=== PATIENT | male | born 1950 | race Caucasian/White ===

== ENCOUNTER 2021-01-22 20:25 | Inpatient (IN) | payer MEDICARE ==
[~2021-01-22] VITALS: Ht 182.9 cm; Wt 100.7 kg
[2021-01-22 20:28] VITALS: BP 137/86
[2021-01-22] MEDS ORDERED: MEDROLDOSEPACK PO (20:42)
[2021-01-22] MEDS ORDERED: VENTOLIN HFA 1818 GM INH (20:43)
[2021-01-22] MEDS ORDERED: ZPAK PO (20:43)
[2021-01-22] MEDS ORDERED: TESSALON PERLE100 MG PO (20:43)
[2021-01-22 20:53] LABS: ABSOLUTE LYMPHOCYTES 0.8 thou/uL (0.8-5.3); ABSOLUTE MONOCYTES 0.6 thou/uL (0.0-1.2); ABSOLUTE NEUTROPHILS 8.2 thou/uL (1.6-8.1); BASOPHILS 0.3 %; HEMATOCRIT 46.7 % (42.0-52.0); HEMOGLOBIN 15.6 gm/dL (14.0-18.0); LYMPHOCYTES 8.5 %; MCH 30.6 pg (26.0-34.0); MCHC 33.3 g/dL (28.0-37.0); MCV 91.8 fL (80.0-100.0); MONOCYTES 6.2 %; MPV 7.9 fl. (7.2-11.1); NUCLEATED RBCS 0 /100WBC; PLATELET COUNT* 253 thou/uL (150-400); RBC 5.09 mil/uL (4.50-6.00); WBC 9.6 thou/uL (4.0-11.0)
[2021-01-22 21:01] LABS: CALCIUM 8.4 mg/dL (8.5-10.1); CREATININE 1.2 mg/dL (0.6-1.3); POTASSIUM 3.3 mmol/L (3.5-5.1)
[2021-01-22 21:11] LABS: TOTAL BILIRUBIN 0.7 mg/dL (<0.1-1.0); TOTAL PROTEIN 7.1 g/dL (6.4-8.2)
[2021-01-23 02:00] VITALS: BP 91/61
[2021-01-23 06:05] VITALS: BP 147/105
[2021-01-23 10:26] VITALS: BP 142/92
[2021-01-23 14:15] VITALS: BP 147/90
[2021-01-23 14:25] VITALS: BP 137/95
--- NOTE | 2021-01-23 15:50 | EKG ---
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
--- NOTE | 2021-01-23 18:27 | NUR ---
RECEIVED REPORT FROM TANVIR LYNCH. PT ARRIVED ON UNIT AROUND 1415. ASSUMED CARE. VS AND ADMIT DONE. RECONCILED MEDS. PT HAS NO HOME MEDS. NO PAIN ON ARRIVAL. HOURLY ROUNDING PERFORMED. ORIENTED TO NEW ROOM. CALL LIGHT WITH IN REACH. WILL CONTINUE TO MONITOR.
[2021-01-23 18:46] LABS: CHOLESTEROL 123 mg/dL (<200); HDL CHOLESTEROL 41 mg/dL (>40); LDL CHOLESTEROL 65 mg/dL (<100); TRIGLYCERIDE 85 mg/dL (<150); VLDL 17 mg/dL (<40)
[2021-01-23 18:47] LABS: SERUM ASSESSMENT Clear
[2021-01-23 22:24] LABS: CALCIUM 8.1 mg/dL (8.5-10.1); CREATININE 1.1 mg/dL (0.6-1.3); POTASSIUM 3.4 mmol/L (3.5-5.1)
[2021-01-23 22:27] LABS: MAGNESIUM 2.5 mg/dL (1.8-2.4); PHOSPHORUS* 2.8 mg/dL (2.5-4.9)
[2021-01-24 00:40] VITALS: BP 136/87
[2021-01-24 04:27] VITALS: BP 135/84
[2021-01-24 08:00] VITALS: BP 137/89
--- NOTE | 2021-01-24 11:15 | EKG ---
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[place] : 1950 Requested By: Brent Cortez Order Number: [id number] Leonard MD: Hector Gustafson Measurements Intervals [place] Rate: 99 P: [place]: QRS: 16 QRSD: 84 T: -9 QT: 342 QTc: 439 Interpretive Statements Atrial fibrillation Borderline T abnormalities, inferior leads Compared to ECG 01/22/2021 20:43:30 T-wave abnormality now present Electronically Signed On 01-24-2021 11:15:35 CDT by Hector Gustafson [email or web address] <ELECTRONICALLY SIGNED> By: Hector Gustafson MD, [facility] 01/24/21 1115 171 171 Hector Gustafson MD, [facility] /EPI
[2021-01-24 12:30] VITALS: BP 140/91
--- NOTE | 2021-01-24 15:27 | NUR ---
Pt is A&O. Covid positive. Resides at home alone. Independent. No DME. No hx of HH or SNF. Goal is home at dc. Pt on 6L o2, continue to wean. Ex ox needed at dc.
--- NOTE | 2021-01-24 17:34 | EKG ---
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
--- NOTE | 2021-01-24 17:36 | 2DMMODE ---
[place] [address] 2 D/M-MODE ECHOCARDIOGRAM Name: REYNALDO MONCADA Room: [address] IN [facility]#: [id number] Admission: 01/22/21 Attend Phys: Angel Barney, Discharge: Date of : 50 Date of Service: 01/24/21 1736 Report #: [id number] THIS REPORT FOR: cc: FAM - No family physician/PCP FAM - No family physician/PCP Alonso Moore MD [facility] ~ APPROVED REPORT Study performed: 01/24/2021 14:41:50 EXAM: Comprehensive 2D, Doppler, and color-flow Echocardiogram Patient Location: In-Patient Room #: 115 Status: routine BSA: 2.23 HR: 103 bpm BP: 137/89 mmHg Rhythm: Atrial Fibrillation Other Information Study Quality: Good Indications Atrial Fibrillation 2D Dimensions IVSd: 11.53 (7-11mm) LVOT Diam: 21.87 (18-24mm) LVDd: 35.13 mm PWd: 11.08 (7-11mm) Ascending Ao: 35.49 (22-36mm) LVDs: 22.57 (25-40mm) Aortic Root: 41.88 mm Volumes Left Atrial Volume (Systole) LA ESV Index: 23.70 mL/m2 Aortic Valve AoV Peak Royal.: 0.97 m/s AO Peak Gr.: 3.78 mmHg LVOT Max P.39 mmHg AO Mean Gr.: 2.29 mmHg LVOT Mean P.06 mmHg LVOT Max V: 0.92 m/s AO V2 VTI: 15.83 cm LVOT Mean V: 0.69 m/s KENJI (VTI): 4.02 cm2 LVOT V1 VTI: 16.96 [place] [address] 2 D/M-MODE ECHOCARDIOGRAM Name: REYNALDO MONCADA Room: [address] IN [facility]#: [id number] Admission: 01/22/21 Attend Phys: Angel Barney, Discharge: Date of : 50 Date of Service: 01/24/21 1736 Report #: [id number] TDI Medial E' Royal.: 0.13 m/s Lateral E' Royal.: 0.14 m/s Pulmonary Valve PV Peak Royal.: 0.93 m/s PV Peak Gr.: 3.47 mmHg Tricuspid Valve RAP Estimate: 5.00 mmHg TR Peak Gr.: 23.95 mmHg RVSP: 29.00 mmHg PA Pressure: 29.00 mmHg Left Ventricle The left ventricle is normal size. There is normal LV segmental wall motion. Mild concentric left ventricular hypertrophy. The left ventricular systolic function is normal. The left ventricular ejection fraction is within the normal range. LVEF is 60-65%. This study is not technically sufficient to allow evaluation of the LV diastolic function due to atrial fibrillation. Right Ventricle The right ventricle is normal size. The right ventricular systolic function is normal. Atria Left atrium is mildly dilated. The right atrium size is normal. Aortic Valve Grossly normal. Trace aortic regurgitation. There is no aortic valvular stenosis. Mitral Valve The mitral valve is normal in structure. Trace mitral regurgitation. No evidence of mitral valve stenosis. Tricuspid Valve Grossly normal. Mild tricuspid regurgitation. The RVSP is 30-35 mmHg. Pulmonic Valve Mild pulmonic regurgitation. Great Vessels Aortic root is moderately dilated. IVC [place] [address] 2 D/M-MODE ECHOCARDIOGRAM Name: REYNALDO MONCADA Room: [address]#: [id number] Admission: 01/22/21 Attend Phys: Angel Barney, Discharge: Date of : 50 Date of Service: 01/24/21 1736 Report #: [id number] <Conclusion> The left ventricle is normal size. Mild concentric left ventricular hypertrophy. The left ventricular systolic function is normal. The left ventricular ejection fraction is within the normal range. LVEF is 60-65%. This study is not technically sufficient to allow evaluation of the LV diastolic function due to atrial fibrillation. There is normal LV segmental wall motion. Left atrium is mildly dilated. Mild tricuspid regurgitation. The RVSP is 30-35 mmHg. Aortic root is moderately dilated. <ELECTRONICALLY SIGNED> By: Alonso Moore MD, FACC 01/24/21 1736 1736 1736 Alonso Moore MD, FACC /INF
[2021-01-24 17:47] VITALS: BP 146/98
[2021-01-24 18:11] LABS: HEMATOCRIT 40.3 % (42.0-52.0); MCH 30.3 pg (26.0-34.0); MCHC 33.3 g/dL (28.0-37.0); MCV 91.1 fL (80.0-100.0); MPV 7.5 fl. (7.2-11.1); NUCLEATED RBCS 0 /100WBC; PLATELET COUNT* 255 thou/uL (150-400); RBC 4.43 mil/uL (4.50-6.00); RDW-CV 13.7 % (10.5-14.5); WBC 9.9 thou/uL (4.0-11.0)
[2021-01-24 18:12] LABS: HEMOGLOBIN 13.4 gm/dL (14.0-18.0)
[2021-01-24 18:27] LABS: ALBUMIN 2.4 g/dL (3.4-5.0); MAGNESIUM 2.4 mg/dL (1.8-2.4); POTASSIUM 4.2 mmol/L (3.5-5.1); TOTAL BILIRUBIN 0.7 mg/dL (<0.1-1.0); TOTAL PROTEIN 5.8 g/dL (6.4-8.2)
[2021-01-24 19:10] LABS: ABSOLUTE LYMPHOCYTES 0.7 thou/uL (0.8-5.3); ABSOLUTE MONOCYTES 0.5 thou/uL (0.0-1.2); ABSOLUTE NEUTROPHILS 8.7 thou/uL (1.6-8.1)
[2021-01-24 19:12] LABS: PLATELET ESTIMATE ADEQUATE
[2021-01-25] VITALS: BP 147/89
[2021-01-25 04:00] VITALS: BP 140/57
[2021-01-25 04:52] LABS: HEMATOCRIT 39.4 % (42.0-52.0); HEMOGLOBIN 13.3 gm/dL (14.0-18.0); MCH 30.8 pg (26.0-34.0); MCHC 33.8 g/dL (28.0-37.0); MCV 91.2 fL (80.0-100.0); MPV 7.8 fl. (7.2-11.1); RBC 4.33 mil/uL (4.50-6.00); RDW-CV 13.4 % (10.5-14.5)
[2021-01-25 05:20] LABS: ALBUMIN 2.4 g/dL (3.4-5.0); MAGNESIUM 2.4 mg/dL (1.8-2.4); POTASSIUM 3.8 mmol/L (3.5-5.1); TOTAL BILIRUBIN 0.9 mg/dL (<0.1-1.0); TOTAL PROTEIN 5.8 g/dL (6.4-8.2)
--- NOTE | 2021-01-25 07:25 | NUR ---
CHANGE OF SHIFT REPORT GIVEN PATIENT SEEN AT BEDSIDE, IN BED RESTING ASSUMED PATIENT CARE
[2021-01-25 08:00] VITALS: BP 134/83
[2021-01-25 12:00] VITALS: BP 147/78
--- NOTE | 2021-01-25 14:54 | NUR ---
Anticipate dc in a few days. Pt remains on 12L
--- NOTE | 2021-01-25 15:54 | CON ---
[address] [address] CONSULTATION Name: REYNALDO MONCADA Room: [address] IN .R.#: [id number] Admission: 01/22/21 Attend Phys: Angel Barney MD Discharge: Date of : 50 Report #: [id number] THIS REPORT FOR: cc: FAM - No family physician/PCP FAM - No family physician/PCP Uri Joseph MD ~ DATE OF CONSULTATION: 01/24/2021 REQUESTING PHYSICIAN: Fay Vazquez MD INDICATION FOR CONSULTATION: COVID-19. HISTORY OF PRESENT ILLNESS: A 70-year-old gentleman with past medical history is as mentioned, though does not include a history of a cardiac or respiratory disease. The patient also is a lifetime nonsmoker. The patient has now been having flu-like symptoms since 01/09, was initially treated with a Medrol Dosepak, albuterol inhaler, Tessalon Perles and azithromycin by his PCP. The patient, however, continued to have shortness of breath, also had a cough, but not much sputum, no chest pain, no swelling of lower extremities. These symptoms were worsening and therefore he eventually came to the emergency room here. The patient also is noted to have been tachycardic and he did develop atrial fibrillation. This is new onset atrial fibrillation as he has not had a previous history of atrial fibrillation. Since then, he has continued to require oxygen to maintain O2 saturation, initially was 84% on room air, currently on 6 liters nasal cannula. He is maintaining an O2 saturation of 94%. The patient reports persistent shortness of breath with not much improvement since he was admitted. REVIEW OF SYSTEMS: For 12 points is negative except as mentioned above with the exception that he had some headache, malaise and weakness. PAST MEDICAL HISTORY: Cataract surgery, bunionectomy. There is recent echo showing normal left ventricular ejection fraction, pulmonary artery systolic 35. SOCIAL HISTORY: Lifetime nonsmoker. No known history of heavy alcohol use or illegal drug use. CURRENT MEDICATIONS: The list is in [place], reviewed. HOME MEDICATIONS: See discussion as above for recent medications as described. He has not been on any other medications at home. FAMILY HISTORY: There is a history of heart [place] [address] CONSULTATION Name: REYNALDO MONCADA Room: [address]#: [id number] Admission: 01/22/21 Attend Phys: Angel Barney MD Discharge: Date of : 50 Report #: [id number] PHYSICAL EXAMINATION: GENERAL: He is alert, awake and oriented, does not appear to be in any distress. VITAL SIGNS: Has a pulse of 91 and a blood pressure of 146/98. He is saturating 94%. He is on 6 liters nasal cannula. His temperature is 37.2. HEENT: Head is normocephalic and atraumatic. NECK: Does not show raised JVP. CHEST: Essentially clear to auscultation. HEART: Regular, no murmur. ABDOMEN: Soft and nontender. EXTREMITIES: Lower extremities, no edema, no calf tenderness. LABORATORY DATA: The patient's CTA chest performed 2 days ago is reviewed and primarily shows extensive infiltrates secondary to COVID-19. There are no pulmonary emboli. Venous Dopplers were negative. Lab work is in [place] and this is also reviewed. ASSESSMENT AND PLAN: 1. Acute hypoxemic respiratory failure secondary to COVID-19. The patient was instructed to avoid supine sleep, referred prone. If not prone, then on sides out of the bed to chair. He is currently on albuterol inhaler. He is not in a negative pressure room and therefore, I did not change him to nebulizers. 2. COVID-19. Primarily, I recommend continuing with dexamethasone at 6 mg a day at this time as well as remdesivir. He has already ordered these. His LFTs are elevated. Therefore, for now we will continue remdesivir. Recommend closely following LFTs. 3. Pulmonary infiltrates, primarily secondary to COVID-19, but will cover for possibility of secondary bacterial infections with doxycycline. 4. New onset atrial fibrillation. Cardiology on the case. Left ventricular ejection fraction noted to be normal. Noted to be now on sotalol as well as Eliquis. 5. Hyperglycemia. No known history of diabetes. Hemoglobin A1c can be obtained to distinguish between diabetes and hyperglycemia solely related to stress and steroid. Defer to primary service. 6. Elevated blood pressures. He is now on sotalol per cardiology. It is possible he has previously undiagnosed hypertension. 7. Clostridium difficile prophylaxis, Lactinex. Thanks for this consultation. <ELECTRONICALLY SIGNED> By: Uri Joseph MD 01/25/21 1554 2118 [id number] Joseph MD /nt
[2021-01-25 15:56] VITALS: BP 129/74
--- NOTE | 2021-01-25 16:18 | EKG ---
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 : 1950 Requested By: Laura Parrish Order Number: [id number] Leonard MD: Hector Gustafson Measurements Intervals [place] Rate: 76 P: [place]: QRS: 14 QRSD: 90 T: -2 QT: 384 QTc: 432 Interpretive Statements Atrial fibrillation Borderline T abnormalities, inferior leads Baseline wander in lead(s) II Compared to ECG 01/24/2021 16:09:1 No significant interval change Electronically Signed On 01-25-2021 16:18:29 CDT by Hector Gustafson [email or web address] <ELECTRONICALLY SIGNED> By: Hector Gustafson MD, FAC 01/25/21 1618 0646 0646 Hector Gustafson MD, FAC /EPI
--- NOTE | 2021-01-25 16:18 | NUR ---
Infection Prevention: Per [facility] patient had a positive Covid PCR test on 01/19/21.
[2021-01-25 20:00] VITALS: BP 115/66
[2021-01-26 00:17] VITALS: BP 138/61
[2021-01-26 04:38] VITALS: BP 139/67
--- NOTE | 2021-01-26 05:07 | NUR ---
ASSUMED PT CARE AT APPROX 1930. PT IS AWAKE AND ORIENTED X4. PT IS TRACING AFIB/AFLUTTER/SB ON THE FORGER HELPER. spO2 IS 85-88 ON 8L OF O2/NC, TURNED O2 UP TO 10L TO KEEP spO2 AT OR >90%. PT DENIES PAIN AT THIS TIME. NO ACUTE CHANGES. CALL LIGHT WITHIN REACH. HOURLY ROUNDING DONE FOR PT SAFETY.
[2021-01-26 05:21] LABS: ABSOLUTE LYMPHOCYTES 0.3 thou/uL (0.8-5.3); ABSOLUTE MONOCYTES 0.3 thou/uL (0.0-1.2); ABSOLUTE NEUTROPHILS 6.8 thou/uL (1.6-8.1); BASOPHILS 0.1 %; HEMATOCRIT 39.8 % (42.0-52.0); HEMOGLOBIN 13.3 gm/dL (14.0-18.0); LYMPHOCYTES 4.6 %; MCH 30.3 pg (26.0-34.0); MCHC 33.5 g/dL (28.0-37.0); MCV 90.5 fL (80.0-100.0); MONOCYTES 3.7 %; MPV 7.9 fl. (7.2-11.1); NUCLEATED RBCS 0 /100WBC; PLATELET COUNT* 256 thou/uL (150-400); POLYS 91.6 %; RDW-CV 13.5 % (10.5-14.5); WBC 7.4 thou/uL (4.0-11.0)
[2021-01-26 05:48] LABS: ALBUMIN 2.4 g/dL (3.4-5.0); CREATININE 1.1 mg/dL (0.6-1.3); MAGNESIUM 2.3 mg/dL (1.8-2.4); TOTAL BILIRUBIN 0.7 mg/dL (<0.1-1.0)
[2021-01-26 06:00] LABS: POTASSIUM 4.2 mmol/L (3.5-5.1)
[2021-01-26 08:00] VITALS: BP 128/68
[2021-01-26 12:30] VITALS: BP 133/51
--- NOTE | 2021-01-26 14:36 | EKG ---
[place] [address] ELECTROCARDIOGRAM REPORT Name: REYNALDO MONCADA Room: [address] IN ..#: [id number] Admission: 01/22/21 Attend Phys: Angel Barney, Discharge: Date of : 50 Date of Service: 01/26/21 1022 Report #: [id number] THIS REPORT FOR: //name// [facility] Test Date: 2021-01-26 Test Time: 10:22:05 Pat Name: REYNALDO MONCADA Department: Room: [address] Gender: M Cv Rn: 1885 : 1950 Requested By: Laura Parrish Order Number: [id number] Reading MD: eHctor Gustafson Measurements Intervals [place] Rate: 60 P: 23 MT: 182 QRS: 48 QRSD: 79 T: 47 QT: 448 QTc: 448 Interpretive Statements Sinus rhythm Probable left atrial enlargement RSR' in V1 or V2, probably normal variant Compared to ECG 01/25/2021 06:46:00 RSR' in V1 or V2 now present Atrial fibrillation no longer present T-wave abnormality no longer present Electronically Signed On 01-26-2021 14:36:22 CDT by Hector Gustafson [email or web address] <ELECTRONICALLY SIGNED> By: Hector Gustafson MD, [facility] 01/26/21 1436 1022 1022 Hector Gustafson MD, [facility] /EPI
--- NOTE | 2021-01-26 15:06 | NUR ---
No weekend dc planned. Pt on 10L, continue to wean. Pt will need an ex ox at dc.
[2021-01-26 16:39] VITALS: BP 131/61
--- NOTE | 2021-01-26 19:24 | NUR ---
RECEIVED REPORT AROUND 0715. ASSUMED CARE. VS AND ASSESSMENT CHARTED. IV INTACT LEFT HAND, LEFT AC. HEART MONITOR ATTACHED AT SB. PT UP IN CHAIR MOST OF DAY. NO PAIN THIS SHIFT. MEDS GIVEN PER JUL. HOURLY ROUNDING PERFORMED. ISOLATION INTACT. CALL LIGHT WITH IN REACH.
[2021-01-26 20:00] VITALS: BP 128/64
[2021-01-27 00:23] VITALS: BP 143/52
[2021-01-27 04:31] VITALS: BP 145/64
--- NOTE | 2021-01-27 04:52 | NUR ---
NO ACUTE CHANGES THIS SHIFT. PT IS TRACING SB ON THE ASSISTANT PRODUCTION MANAGER. PT DENIES CHEST PAIN/DISCOMFORT. PT GETS SHORT OF AIR WITH ACTIVITY, DESATURATES ON THE MID TO UPPER 80's. NO DESATURATIONS NOTED AT REST ON 10L OF O2/HFNC. PT IS CLOSELY MONITORED. CALL LIGHT WITHIN REACH. HOURLY ROUNDING DONE FOR PT SAFETY.
[2021-01-27 05:31] LABS: HEMATOCRIT 39.1 % (42.0-52.0); HEMOGLOBIN 13.4 gm/dL (14.0-18.0); MCH 30.9 pg (26.0-34.0); MCHC 34.3 g/dL (28.0-37.0); MCV 89.9 fL (80.0-100.0); MPV 7.8 fl. (7.2-11.1); NUCLEATED RBCS 0 /100WBC; PLATELET COUNT* 281 thou/uL (150-400); RBC 4.35 mil/uL (4.50-6.00); RDW-CV 13.6 % (10.5-14.5); WBC 10.2 thou/uL (4.0-11.0)
[2021-01-27 05:57] LABS: ALBUMIN 2.4 g/dL (3.4-5.0); CALCIUM 8.3 mg/dL (8.5-10.1); MAGNESIUM 2.5 mg/dL (1.8-2.4); POTASSIUM 4.4 mmol/L (3.5-5.1); TOTAL BILIRUBIN 0.6 mg/dL (<0.1-1.0); TOTAL PROTEIN 6.1 g/dL (6.4-8.2)
[2021-01-27 06:37] LABS: ABSOLUTE LYMPHOCYTES 0.2 thou/uL (0.8-5.3); ABSOLUTE MONOCYTES 0.1 thou/uL (0.0-1.2); ABSOLUTE NEUTROPHILS 9.9 thou/uL (1.6-8.1); PLATELET ESTIMATE ADEQUATE
[2021-01-27 08:00] VITALS: BP 130/67
[2021-01-27 12:00] VITALS: BP 132/68
[2021-01-27 16:00] VITALS: BP 136/71
--- NOTE | 2021-01-27 19:24 | NUR ---
RECEIVED REPORT AROUND 0715. ASSUMED CARE. VS AND ASSESSMENT CHARTED. IV INTACT. HEART MONITOR ATTACHED AT SR. MEDS GIVEN PER JUL. HOURLY ROUNDING PERFORMED. CALL LIGHT WITH IN REACH.
[2021-01-27 20:00] VITALS: BP 136/65
[2021-01-28 00:32] VITALS: BP 137/59
[2021-01-28 04:17] VITALS: BP 145/74
--- NOTE | 2021-01-28 04:54 | NUR ---
ASSUMED PT CARE AT APPROX 1930. PT IS AWAKE AND ORIENTED X4, PT IS TRACING SB ON THE INSURANCE ACCOUNT EXECUTIVE. PT IS KEPT ON 10L OF O2/HFNC TO MAINTAIN sPO2 >91%. PT DENIES PAIN/DISCOMFORT. NO ACUTE CHANGES THIS SHIFT. CALL LIGHT WITHIN REACH. HOURLY ROUNDING DONE FOR PT SAFETY. PT IS CLOSELY MONITORED.
[2021-01-28 06:17] LABS: CALCIUM 8.2 mg/dL (8.5-10.1); CREATININE 0.9 mg/dL (0.6-1.3); MAGNESIUM 2.3 mg/dL (1.8-2.4); POTASSIUM 4.3 mmol/L (3.5-5.1)
[2021-01-28 08:00] VITALS: BP 119/62
[2021-01-28 12:30] VITALS: BP 113/54
[2021-01-28 18:50] VITALS: BP 129/66
--- NOTE | 2021-01-28 19:01 | NUR ---
RECEIVED REPORT AROUND 0715. ASSUMED CARE. VS AND ASSESSMENT CHARTED. IV ITNACT RIGHT HAND. HEART MONITOR ATTACHED AT SB. MEDS GIVEN PER JUL. HOURLY ROUNDING PERFORMED. ISOLATION INTACT. 10L HI FLOW. PT SAT UP IN CHAIR FOR A WHILE THIS SHIFT. CALL LIGHT WITH IN REACH. WILL CONTINUE TO MONITOR.
[2021-01-28 20:00] VITALS: BP 131/62
[2021-01-29] VITALS: BP 121/64
[2021-01-29 04:00] VITALS: BP 141/69
--- NOTE | 2021-01-29 05:32 | NUR ---
ASSUMED PT CARE AT APPROX 1930. PT IS AWAKE AND ORIENTED X4, PT IS TRACING SB ON THE [place]. PT IS KEPT ON 9L OF O2/HFNC TO MAINTAIN sPO2 >91%. PT DENIES PAIN/DISCOMFORT. NO ACUTE CHANGES THIS SHIFT. CALL LIGHT WITHIN REACH. HOURLY ROUNDING DONE FOR PT SAFETY. PT IS CLOSELY MONITORED.
[2021-01-29 05:34] LABS: HEMATOCRIT 38.9 % (42.0-52.0); HEMOGLOBIN 12.9 gm/dL (14.0-18.0); MCH 30.2 pg (26.0-34.0); MCHC 33.2 g/dL (28.0-37.0); MPV 7.6 fl. (7.2-11.1); RBC 4.27 mil/uL (4.50-6.00); RDW-CV 13.6 % (10.5-14.5); WBC 10.8 thou/uL (4.0-11.0)
[2021-01-29 05:57] LABS: ALBUMIN 2.2 g/dL (3.4-5.0); CALCIUM 7.8 mg/dL (8.5-10.1); MAGNESIUM 2.4 mg/dL (1.8-2.4); POTASSIUM 4.9 mmol/L (3.5-5.1); TOTAL BILIRUBIN 0.7 mg/dL (<0.1-1.0); TOTAL PROTEIN 5.5 g/dL (6.4-8.2)
[2021-01-29 08:00] VITALS: BP 125/61
[2021-01-29 12:10] VITALS: BP 135/71
--- NOTE | 2021-01-29 14:23 | NUR ---
Nutrition: Pt admitted to COVID unit. Assessed for LOS. Spoke with RN. Pt is eating well. Wt: 222#. Meds, labs reviewed. H/o HTN, HLD, DM. No nutrition needs at this time. Low risk.
--- NOTE | 2021-01-29 16:00 | NUR ---
Pt on 7L, continue to wean. Anticipate dc tomorrow. Ex ox to be completed at dc
[2021-01-29 18:46] VITALS: BP 121/61
--- NOTE | 2021-01-29 19:23 | NUR ---
RECEIVED REPORT AROUND 0715. ASSUMED CARE. VS AND ASSESSMENT CHARTED. IV INTACT. HEART MONITOR ATTACHED AT SB/SR. PT UP ADLIB. MEDS GIVEN PER MAR. HOURLY ROUNDING PERFORMED. ISOLATION INTACT. CALL LIGHT WITH IN REACH.
[2021-01-29 20:30] VITALS: BP 122/77
[2021-01-30 00:09] VITALS: BP 113/53
[2021-01-30 04:00] VITALS: BP 132/70
[2021-01-30 04:51] LABS: HEMATOCRIT 38.7 % (42.0-52.0); HEMOGLOBIN 13.2 gm/dL (14.0-18.0); MCHC 34.1 g/dL (28.0-37.0); MCV 90.8 fL (80.0-100.0); MPV 7.7 fl. (7.2-11.1); RBC 4.26 mil/uL (4.50-6.00); RDW-CV 13.4 % (10.5-14.5); WBC 12.7 thou/uL (4.0-11.0)
[2021-01-30 05:46] LABS: ALBUMIN 2.2 g/dL (3.4-5.0); CALCIUM 7.9 mg/dL (8.5-10.1); CREATININE 0.9 mg/dL (0.6-1.3); MAGNESIUM 2.3 mg/dL (1.8-2.4); POTASSIUM 4.7 mmol/L (3.5-5.1); TOTAL BILIRUBIN 0.6 mg/dL (<0.1-1.0); TOTAL PROTEIN 5.5 g/dL (6.4-8.2)
[2021-01-30 08:00] VITALS: BP 125/97
[2021-01-30 12:00] VITALS: BP 111/60
[2021-01-30] MEDS ORDERED: ELIQUIS5 MG PO (12:16)
[2021-01-30] MEDS ORDERED: DEXAMETHASONE 22 M1 PO (12:16)
[2021-01-30] MEDS ORDERED: DOXYCYCLINE 10100 MG PO (12:16)
[2021-01-30] MEDS ORDERED: SORINE 80 MG TA80 M1 PO (12:16)
[2021-01-30 13:48] VITALS: BP 125/97
[2021-01-30 15:36] VITALS: BP 125/97
--- NOTE | 2021-01-30 15:47 | NUR ---
Pt needing home o2, set up through [employer]. Faxed HH orders to [facility]
--- NOTE | 2021-01-30 16:24 | NUR ---
ASSUMED PT CARE AT 0730, PT AOX4, NO C/O PAIN OR SHORTNESS OF BREATH, PT VERY MUCH WANTS TO GO HOME. PT WORKED W/ RT AND DR AND HOME O2 SET UP AND DC ORDERS RECEIVED. 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 PT DC'D BY W/ NURSING STAFF AND ALL PAPERWORK AND PERSONAL BELONGINGS TO SON'S VEHICLE AT APPROX 1610
== END 2021-01-30 16:10 | disposition home health service (06) | DRG 177 ==
LOC: M.ERS 20:25 → M.ORTHSURG 21:52 → M.TBA-ER 21:52 → M.ORTHSURG 01-23 14:29
PROVIDERS: Internal Medicine; Internal Medicine Critical Care Medicine; Nurse Practitioner Family; ADMIT Internal Medicine; ATTEND Internal Medicine
PROC: XW033E5 Introduction of Remdesivir Anti-infective into Peripheral Vein, Percutaneous Approach, New Technology Group 5 (ICD-10-PCS; principal; 2021-01-23)
PROC: 5A0935A Assistance with Respiratory Ventilation, Less than 24 Consecutive Hours, High Flow/Velocity Cannula (ICD-10-PCS; 2021-01-24)
PROC: 5A0935A Assistance with Respiratory Ventilation, Less than 24 Consecutive Hours, High Flow/Velocity Cannula (ICD-10-PCS; 2021-01-25)
PROC: 5A0935A Assistance with Respiratory Ventilation, Less than 24 Consecutive Hours, High Flow/Velocity Cannula (ICD-10-PCS; 2021-01-26)
PROC: 5A0945A Assistance with Respiratory Ventilation, 24-96 Consecutive Hours, High Flow/Velocity Cannula (ICD-10-PCS; 2021-01-27)
PROC: 5A0935A Assistance with Respiratory Ventilation, Less than 24 Consecutive Hours, High Flow/Velocity Cannula (ICD-10-PCS; 2021-01-30)
DX: U07.1 COVID-19 (principal); J96.01 Acute respiratory failure with hypoxia; J12.82 Pneumonia due to coronavirus disease 2019; I48.91 Unspecified atrial fibrillation; E78.5 Hyperlipidemia, unspecified; I10 Essential (primary) hypertension; E87.6 Hypokalemia; E11.65 Type 2 diabetes mellitus with hyperglycemia; Z98.42 Cataract extraction status, left eye; Z98.41 Cataract extraction status, right eye; Z82.49 Family history of ischemic heart disease and other diseases of the circulatory system; Z82.3 Family history of stroke